=== PATIENT | male | born 1965 | race Two or more races ===

== ENCOUNTER 2017-02-02 14:41 | Emergency (ER) | payer OTHER ==
[~2017-02-02] VITALS: Wt 67.0 kg
[~2017-02-02 14:41] MED LIST: ALBU18HF INHALATION; ALBU8.5H3 INH; AZIT250T94 PO; BENZ100C70 PO; D-ME118S6 PO; PRED20TA PO
--- NOTE | 2017-02-02 16:39 | RADRPT ---
PROCEDURE: XR Chest. CLINICAL INDICATION: Chest pain TECHNIQUE: Single frontal view of the chest was obtained COMPARISON: 04/16/2016 FINDINGS: No pleural effusion or pneumothorax. No consolidation. Stable cardiomediastinal silhouette. No acute osseous abnormality. IMPRESSION: No acute cardiopulmonary disease. RPTAT: EE Katy Cash Physician Date Time Electronically viewed and signed by Katy Cash Physician on 02/02/2017 16:39 /
[2017-02-02 18:07] LABS: BASOPHIL # 0.1 10^3/ul (0.0-0.1); BASOPHILS % 1.3 % (0.0-2.0); EOSINOPHILS # 0.8 10^3/ul (0.0-0.5); EOSINOPHILS % 10.3 % (0.0-7.0); HEMATOCRIT 51.5 % (42.0-52.0); HEMOGLOBIN 17.4 g/dl (14.0-18.0); LYMPHOCYTES # 2.1 10^3/ul (0.8-2.9); LYMPHOCYTES % 28.1 % (15.0-51.0); MEAN CORPUSCULAR HEMOGLOBIN 30.4 pg (29.0-33.0); MEAN CORPUSCULAR HGB CONC 33.8 g/dl (32.0-37.0); MEAN PLATELET VOLUME 10.8 fl (7.4-10.4); MONOCYTE # 0.7 10^3/ul (0.3-0.9); MONOCYTES % 8.7 % (0.0-11.0); NEUTROPHIL # 3.9 10^3/ul (1.6-7.5); NEUTROPHILS % 51.2 % (39.0-77.0); PLATELET COUNT 213 10^3/UL (140-415); RED BLOOD COUNT 5.72 10^6/ul (4.70-6.10); RED CELL DISTRIBUTION WIDTH 13.4 % (11.5-14.5); WHITE BLOOD COUNT 7.6 10^3/ul (4.8-10.8)
[2017-02-02 18:28] LABS: ANION GAP 12 (8-16); BLOOD UREA NITROGEN 13 mg/dl (7-20); CALCIUM 9.3 mg/dl (8.4-10.2); CARBON DIOXIDE 26 mmol/L (21-31); CHLORIDE 106 mmol/L (97-110); CREATININE 0.93 mg/dl (0.61-1.24); GLUCOSE 77 mg/dl (70-220); POTASSIUM 3.9 mmol/L (3.5-5.1); SODIUM 140 mmol/L (135-144)
[2017-02-02 18:42] LABS: TROPONIN-I < 0.012 ng/ml (0.00-0.12)
[2017-02-02] MEDS ORDERED: ONDA-43 PO (18:45)
[2017-02-02] MEDS ORDERED: MECL12.574 PO (18:45)
--- NOTE | 2017-02-02 18:54 | ERD ---
ER Documentation Chief Complaint Date/Time DATE: 02/02/17 TIME: 18:48 Chief Complaint ELEVATED PRESSURE PER PT, DIZZY HPI This is a 51-year-old male presents to the ER with multiple complaints. Patient states that since yesterday he has been feeling very dizzy, he states that he feels as if the room is spinning and also has associated nausea however denies vomiting or diarrhea. Patient states that yesterday he also developed some mild chest pain, however denies any shortness of breath. Chest pain is nonexertional. Chest pain is intermittent episodes only last a few seconds. Patient states he has a past medical history of hypertension and asthma and is compliant with his medication. Patient denies any headaches he denies any head trauma he denies any loss of consciousness or seizures. Denies any fevers or chills. He denies any recent cough or cold symptoms. He denies any abdominal pain. ROS 12 point review of systems was done, all negative except per HPI. Medications Home Meds Active Scripts Ondansetron Hcl* (Zofran*) 4 Mg Tab, 4 MG PO Q4H Y for NAUSEA AND OR VOMITING for 3 Days, TAB Prov:YANETH GUTIERREZ 02/02/17 Meclizine Hcl* (Antivert*) 12.5 Mg Tab, 12.5 MG PO Q6H Y for DIZZINESS, #20 TAB Prov:YANETH GUTIERREZ 02/02/17 Benzonatate* (Tessalon Perle*) 100 Mg Capsule, 100 MG PO Q8H Y for COUGH for 14 Days, CAP Prov:JIGAR YAO PA-C 04/16/16 Prednisone* (Prednisone*) 20 Mg Tab, 40 MG PO DAILY for 4 Days, TAB Prov:JIGAR YAO-C 04/16/16 Albuterol Sulfate* (Proair HFA*) 8.5 Gm Hfa.aer.ad, 2 PUFF INH Q4, #1 INHALER Prov:JIGAR YAOC 04/16/16 Albuterol Sulfate* (Ventolin HFA*) 18 Gm Hfa.aer.ad, 2 PUFF INHALATION Q4H, #1 INHALER Prov:ABHINAV REED MD 03/20/16 Prednisone* (Prednisone*) 20 Mg Tab, 40 MG PO DAILY for 4 Days, TAB Start 03/21/2016 Prov:ABHINAV REED MD 03/20/16 Azithromycin* (Zithromax*) 250 Mg Tablet, 250 MG PO .ZPACK DIRECTED, #6 TAB TAKE 500 MG (2 TABS) THE FIRST DAY THEN 250 MG (1 TAB) DAYS 2-5 Prov:ABHINAV REED MD 03/20/16 Dextromethorphan Hb-Promethazine Hcl (Promethazine DM Syrup) 180 Ml Syrup, 5 ML PO Q6H Y for COUGH, #4 OZ Prov:BRENDAYANETH C 05/06/15 Azithromycin* (Zithromax*) 250 Mg Tablet, 250 MG PO .ZPACK DIRECTED, #6 TAB TAKE 500 MG (2 TABS) THE FIRST DAY THEN 250 MG (1 TAB) DAYS 2-5 Prov:YANETH GUTIERREZ C 05/06/15 Allergies Allergies: Coded Allergies: No Known Allergy (Unverified , 02/02/17) PMhx/Soc History of Surgery: Yes (RECTAL; HEMORROIDS) Anesthesia Reaction: No Hx Neurological Disorder: No Hx Respiratory Disorders: Yes (ASTHMA) Hx Cardiac Disorders: Yes (HTN) Hx Psychiatric Problems: No Hx Miscellaneous Medical Probl: No Hx Alcohol Use: Yes (OOC) Hx Substance Use: No Hx Tobacco Use: No Smoking Status: Former smoker Physical Exam Vitals Vital Signs Date Time Temp Pulse Resp B/P Pulse Ox O2 Delivery O2 Flow Rate FiO2 02/02/17 14:51 98.1 69 17 146/85 98 Physical Exam GENERAL: The patient is well developed and appropriate for usual state of health , in no apparent distress. HEENT: Atraumatic. Conjunctivae are pink. Pupils equal, round, and reactive to light. Extraocular muscles are grossly intact. No nystagmus. Bilateral tympanic membranes are clear with no evidence of erythema, bulging or perforation. CHEST: Clear to auscultation bilaterally. There are no rales, wheezes or rhonchi. HEART: Regular rate and rhythm. No murmurs, clicks, rubs or gallops. ABDOMEN: soft, Nontender, no pulsatile masses. NEURO: Alert and oriented. Cranial nerves II through XII are intact. Motor strength in all 4 extremities with 5/5 strength. Sensation grossly intact. Normal speech and gait. Negative Rhomberg. +2 DTRs. SKIN: There is no apparent rash or petechia. The skin is warm and dry. Result Diagram: 02/02/17 1710 02/02/17 1710 Results 24 hrs Laboratory Tests Test 02/02/17 17:10 White Blood Count 7.610^3/ul Red Blood Count 5.7210^6/ul Hemoglobin 17.4g/dl Hematocrit 51.5% Mean Corpuscular Volume 90.0fl Mean Corpuscular Hemoglobin 30.4pg Mean Corpuscular Hemoglobin Concent 33.8g/dl Red Cell Distribution Width 13.4% Platelet Count 28400^3/UL Mean Platelet Volume 10.8fl Neutrophils % 51.2% Lymphocytes % 28.1% Monocytes % 8.7% Eosinophils % 10.3% Basophils % 1.3% Nucleated Red Blood Cells % 0.0/100WBC Neutrophils # 3.910^3/ul Lymphocytes # 2.110^3/ul Monocytes # 0.710^3/ul Eosinophils # 0.810^3/ul Basophils # 0.110^3/ul Nucleated Red Blood Cells # 0.010^3/ul Sodium Level 140mmol/L Potassium Level 3.9mmol/L Chloride Level 106mmol/L Carbon Dioxide Level 26mmol/L Anion Gap 12 Blood Urea Nitrogen 13mg/dl Creatinine 0.93mg/dl Glucose Level 77mg/dl Calcium Level 9.3mg/dl Troponin I < 0.012ng/ml [place] [id number] Radiology Main Line: [phone] DIAGNOSTIC IMAGING REPORT Patient: LARRY ARMIJO : 1965 Age: 51 Sex: M MR #: [id number] DOS: 02/02/17 1620 Ordering MD: YANETH GUTIERREZ PA-C Location: [facility] Room/Bed: PROCEDURE: XR Chest. CLINICAL INDICATION: Chest pain TECHNIQUE: Single frontal view of the chest was obtained COMPARISON: 04/16/2016 FINDINGS: No pleural effusion or pneumothorax. No consolidation. Stable cardiomediastinal silhouette. No acute osseous abnormality. IMPRESSION: No acute cardiopulmonary disease. RPTAT: EE Physician Endy Date Time Electronically viewed and signed by Katy Cash Physician on 02/02/2017 16 :39 GC/ CC: YANETH GUTIERREZ Procedures/MDM EKG was done [address] elevation no T-wave inversion. EKG was signed by Dr. Cline Differential Diagnosis includes but is not limited to; Benign positional vertigo , labyrinthitis, vertigo, MS, acoustic neuroma, arrhythmia, anemia, hypoglycemia , infection, dehydration, STEMI, dissection, pneumothorax, PE, esophageal rupture, tamponade, pneumonia, pericarditis, GERD, musculoskeletal, endocarditis , anxiety. This is a 51-year-old male presents to the ER with dizziness, nausea and chest pain. At this time etiology for acute myocardial infarction is low. Patient's EKG was normal and his troponin was normal. His heart score is 0. Patient for acute cardiac etiology low. She did not have any shortness of breath, I doubt pneumonia, pneumothorax, pulmonary embolism. [place] patient's dizziness, he may have vertigo. Patient's neurological examination was completely benign, he does not have any history of head trauma at this time I do not believe that CT of the head is necessary. Is afebrile and extremely well-appearing I doubt infection and his blood work was negative for hypoglycemia, dehydration or anemia. Will be sent home with Eladio scanlon he is to follow-up with his primary care doctor within 1-2 days or return to ER sooner if symptoms worsen. My medical decision making was shared with the patient he understands and agrees with plan. His blood pressure was slightly elevated to 146/85, however patient does not have hypertensive emergency or urgency. I explained to patient that it is very important that he follows up with his primary care doctor regarding his high blood pressure. Departure Diagnosis: Primary Impression: Multiple complaints Condition: Stable Patient Instructions: Dizziness, Unk Cause Additional Instructions: Call your primary care doctor TOMORROW for an appointment during the next 1-2 days.See the doctor sooner or return here if your condition worsens before your appointment time. YANETH GUTIERREZ Feb 02, 2017 18:54
== END 2017-02-02 18:55 | disposition home or self-care (01) ==
LOC: FTE 14:41
DX: I10 Essential (primary) hypertension (principal); R42 Dizziness and giddiness; R07.89 Other chest pain; R11.0 Nausea; J45.909 Unspecified asthma, uncomplicated; Z87.891 Personal history of nicotine dependence
CPT/HCPCS: 36415; 71010; 80048; 84484; 85025; Z7502; 93005

== ENCOUNTER 2017-05-21 23:27 | Emergency (ER) | END 2017-05-22 02:10 | disposition home or self-care (01) ==

== ENCOUNTER 2018-06-20 07:10 | Emergency (ER) | payer BC, OTHER ==
[~2018-06-20] VITALS: Ht 157.5 cm; Wt 69.4 kg
[~2018-06-20 07:10] MED LIST changes: -ALBU8.5H3 INH; +ALBU8.5H8 INH; +AZIT250T PO; -AZIT250T94 PO; +BEN50 PO; +BENZ-6 PO; -BENZ100C70 PO; +MECL12.574 PO; +ONDA4TAB13 PO; +PRED50TA PO
[2018-06-20 07:13] VITALS: BP 155/87; PULSE 79; RESP 18; Ht 157.5 cm; Wt 69.4 kg
[2018-06-20] MEDS ORDERED: ALBUTEROL 0.083% (NEB) 2.5 MG/3 ML AMP NEB STA (08:01)
--- NOTE | 2018-06-20 08:04 | ERD ---
ER Documentation Chief Complaint Chief Complaint COUGH, CHEST CONGESTION, SORE THROAT FOR 2 DAYS HPI 52-year-old male with history of asthma, presents the emergency department, complaining of acute onset of respiratory symptoms including runny nose, chest congestion, ocular erythema and general malaise. He denies wheezing, no shortness of breath, no chest pain. He has been using his inhaler regularly, denies fevers or chills. He is requesting a prescription for antibiotics. ROS All systems reviewed and are negative except as per history of present illness. Medications Home Meds Active Scripts Albuterol Sulfate* (Ventolin HFA*) 18 Gm Hfa.aer.ad, 2 PUFF INHALATION Q4H, #1 INHALER Prov:DANYEL CHRISTIANSON MD 06/20/18 Diphenhydramine Hcl* (Benadryl*) 25 Mg Cap, 25 MG PO QHS PRN for congestion, #10 TAB Prov:DANYEL CHRISTIANSON MD 06/20/18 Amoxicillin* (Amoxicillin*) 500 Mg Cap, 500 MG PO TID for 7 Days, CAP Prov:DANYEL CHRISTIANSON MD 06/20/18 Azithromycin* (Zithromax*) 250 Mg Tablet, 250 MG PO .ZPACK DIRECTED, #6 TAB TAKE 500 MG (2 TABS) THE FIRST DAY THEN 250 MG (1 TAB) DAYS 2-5 Prov:DANYEL CHRISTIANSON MD 06/20/18 Prednisone* (Prednisone*) 50 Mg Tablet, 50 MG PO DAILY, #5 TAB Prov:LESLYE RAJAN NP 05/22/17 Diphenhydramine Hcl* (Benadryl*) 50 Mg Cap, 50 MG PO Q6H PRN for ITCHING/RASH, #30 CAP Prov:LESLYE RAJAN FACT CHECKER 05/22/17 Ondansetron Hcl* (Zofran*) 4 Mg Tab, 4 MG PO Q4H PRN for NAUSEA AND OR VOMITING for 3 Days, TAB Prov:YANETH GUTIERREZ 02/02/17 Meclizine Hcl* (Antivert*) 12.5 Mg Tab, 12.5 MG PO Q6H PRN for DIZZINESS, #20 TAB Prov:YANETH GUTIERREZ 02/02/17 Benzonatate* (Tessalon Perle*) 100 Mg Capsule, 100 MG PO Q8H PRN for COUGH for 14 Days, CAP Prov:JIGAR YAO PA-C 04/16/16 Prednisone* (Prednisone*) 20 Mg Tab, 40 MG PO DAILY for 4 Days, TAB Prov:JIGAR YAOC 04/16/16 Albuterol Sulfate* (Proair HFA*) 8.5 Gm Hfa.aer.ad, 2 PUFF INH Q4, #1 INHALER Prov:JIGAR YAOC 04/16/16 Albuterol Sulfate* (Ventolin HFA*) 18 Gm Hfa.aer.ad, 2 PUFF INHALATION Q4H, #1 INHALER Prov:ABHINAV REED MD 03/20/16 Prednisone* (Prednisone*) 20 Mg Tab, 40 MG PO DAILY for 4 Days, TAB Start 03/21/2016 Prov:ABHINAV REED MD 03/20/16 Azithromycin* (Zithromax*) 250 Mg Tablet, 250 MG PO .ZPACK DIRECTED, #6 TAB TAKE 500 MG (2 TABS) THE FIRST DAY THEN 250 MG (1 TAB) DAYS 2-5 Prov:ABHINAV REED MD 03/20/16 Dextromethorphan Hb-Promethazine Hcl (Promethazine DM Syrup) 180 Ml Syrup, 5 ML PO Q6H PRN for COUGH, #4 OZ Prov:YANETH GUTIERREZ 05/06/15 Azithromycin* (Zithromax*) 250 Mg Tablet, 250 MG PO .ZPACK DIRECTED, #6 TAB TAKE 500 MG (2 TABS) THE FIRST DAY THEN 250 MG (1 TAB) DAYS 2-5 Prov:YANETH GUTIERREZ 05/06/15 Allergies Allergies: Coded Allergies: milk (Verified Allergy, Unknown, 06/20/18) Uncoded Allergies: SALMON (Allergy, Unknown, 06/20/18) SESAME SEEDS (Allergy, Unknown, SOB, 06/20/18) PMhx/Soc History of Surgery: Yes (RECTAL; HEMORROIDS) Anesthesia Reaction: No Hx Neurological Disorder: No Hx Respiratory Disorders: Yes (ASTHMA) Hx Cardiac Disorders: Yes (HTN) Hx Psychiatric Problems: No Hx Miscellaneous Medical Probl: No Hx Alcohol Use: Yes (socially) Hx Substance Use: No Hx Tobacco Use: No Smoking Status: Never smoker FmHx Family History: No diabetes, No coronary disease Physical Exam Vitals Vital Signs Date Temp Pulse Resp B/P (MAP) Pulse Ox O2 O2 Flow FiO2 Time Delivery Rate 06/20/18 80 20 96 21 08:23 06/20/18 98.5 79 18 155/87 98 07:13 (109) Physical Exam Const: No acute distress Head: Atraumatic Eyes: Normal Conjunctiva ENT: Normal External Ears, Nose and Mouth. Neck: Full range of motion. No meningismus. Resp: Mild rhonchi without wheezing to auscultation bilaterally Cardio: Regular rate and rhythm, no murmurs Abd: Soft, non tender, non distended. Normal bowel sounds Skin: No petechiae or rashes Back: No midline or flank tenderness Ext: No cyanosis, or edema Neur: Awake and alert Psych: Normal Mood and Affect Results 24 hrs Current Medications Medications Dose Sig/Dennis Start Time Status Last (Trade) Ordered Route PRN Stop Time Admin Dose Reason Admin Albuterol 5 mg ONCE STAT 06/20/18 DC 06/20/18 (Proventil NEB 08:01 08:20 0.083% (Neb)) 06/20/18 08:06 650 mg ONCE ONCE 06/20/18 DC 06/20/18 Acetaminophen PO 08:30 08:13 (Tylenol 06/20/18 08:31 Tab) Microbiology INFLUENZA A & B BY EIA Final INFLU A&B BY EIA INFLUENZA A NEGATIVE (Ref Range Neg) INFLUENZA B NEGATIVE (Ref Range Neg) Procedures/MDM At the time of discharge, vital signs stable, no respiratory distress. Differential diagnosis include but not limited to: Respiratory infection bacterial/viral/fungal. Asthma/COPD, pneumonitis, allergies, GERD. Less likely foreign body aspiration, cardiac related, aspiration pneumonia, malignancy. Physical examination and clinical presentation consistent most likely with viral respiratory infection in an asthma patient with early superimposed bacterial infection. No acute asthma exacerbation, therefore, no steroids in the ED. During the ED course the patient remained stable, received a nebulized treatment in the ED presenting overall improvement of the symptoms, no new complaints. Clinical impression discussed with the patient who agrees with management. The patient is stable to be treated outpatient and will be discharged home. Some side effects of prescribed medications (headache, rash, nausea, vomiting, diarrhea, drowsiness, habituation, bleeding, hypertension, interactions with other medications) were reviewed. The patient was instructed to follow up with the primary care provider in the next 48h. If symptoms persist, worsen or new symptoms develop, then patient should return to the ED immediately. Disclaimer: Inadvertent spelling and grammatical errors are likely due to EHR/dictation software use and do not reflect on the overall quality of patient care. Also, please note that the electronic time recorded on this note does not necessarily reflect the actual time of the patient encounter. Departure Diagnosis: Primary Impression: Upper respiratory infection Additional Impression: Asthma Condition: Stable Additional Instructions: Thank you very much for allowing us to participate in your care. Your health and safety is our top priority at [facility]. Call your primary care doctor TOMORROW for an appointment during the next 2-4 days and bring all the information and medications prescribed. Have prescriptions filled and follow precisely the directions on the label. If the symptoms get worse and your provider is unavailable, return to the Emergency Department immediately. DANYEL CHRISTIANSON MD Jun 20, 2018 08:04
[2018-06-20] MEDS ORDERED: ACETAMINOPHEN 325 MG TAB PO ONE (08:30)
[2018-06-20] MEDS ORDERED: AMOX500C2 PO (08:45)
[2018-06-20] MEDS ORDERED: ALBU18HF INHALATION (08:45)
[2018-06-20] MEDS ORDERED: BEN25 PO (08:45)
[2018-06-20] MEDS ORDERED: AZIT250T PO (08:45)
== END 2018-06-20 09:46 | disposition home or self-care (01) ==
LOC: FTE 07:10
DX: J06.9 Acute upper respiratory infection, unspecified (principal); J45.909 Unspecified asthma, uncomplicated; I10 Essential (primary) hypertension
CPT/HCPCS: 87400; 94664; Z7502; Z7610